=== PATIENT | male | born 1990 | race Asian ===

== ENCOUNTER 2022-08-20 14:12 | Emergency (ER) | payer OTHER ==
[2022-08-20 14:21] VITALS: RESP 18; BMI 32.1
[2022-08-20] MEDS ORDERED: MAG HYDROX/AL HYDROX/SIMETH 30 ML UNIT-DOSE CUP PO ONE (14:54)
[2022-08-20] MEDS ORDERED: FAMOTIDINE 20 MG TABLET PO ONE (14:57)
[2022-08-20] MEDS ORDERED: MAG HYDROX/AL HYDROX/SIMETH 30 ML UNIT-DOSE CUP ONE (15:39)
[2022-08-20] MEDS ORDERED: FAMOTIDINE 20 MG TABLET ONE (15:39)
[2022-08-20 16:11] LABS: BASO % 0.5 % (0-2.0); EOS % 8.2 % (0-4.5); HEMATOCRIT 44.8 % (35.4-49); HEMOGLOBIN 14.1 GM/dL (11.7-16.9); LYMPH % 28.8 % (8-40); MCH 21.3 pg (25.7-33.7); MCHC 31.5 g/dl (32.0-35.9); MEAN CELL VOLUME 67.6 fl (80-96); MEAN PLT VOLUME 9.9 fl (7.5-11.1); NEUT % 56.5 % (42.8-82.8); PLATELET COUNT 215 10^3/uL (134-434); RBC 6.63 M/mm3 (4.00-5.60); RDW 15.6 % (11.9-15.9)
[2022-08-20 17:34] LABS: ALBUMIN 4.2 g/dl (3.4-5.0)
[2022-08-20 17:35] LABS: CALCIUM 9.6 mg/dL (8.5-10.1)
[2022-08-20 17:36] LABS: BLOOD UREA NITROGEN 12.6 mg/dL (7-18)
[2022-08-20 17:37] LABS: CREATININE 1.1 mg/dL (0.55-1.3)
[2022-08-20 17:39] LABS: BILIRUBIN,TOTAL 2.1 mg/dL (0.2-1); TOT PROT 7.4 g/dl (6.4-8.2)
[2022-08-20 18:20] VITALS: BP 123/80; PULSE 68; TEMP 98.9
[2022-08-20 18:40] LABS: ANISOCYTOSIS 3+; MACROCYTOSIS 0
== END 2022-08-20 18:21 | disposition home or self-care (01) ==
LOC: JER 14:12
DX: R07.9 Chest pain, unspecified (principal)
CPT/HCPCS: 36415; 71046-TC-FY; 80053; 83690; 84484; 85025; 93005; 93010; 99285-25